=== PATIENT | female | born 1985 | race Caucasian/White ===

== ENCOUNTER 2019-05-29 07:14 | Day surgery (SDC) | payer OTHER ==
[~2019-05-29] VITALS: Ht 160 cm; Wt 57.1 kg
[~2019-05-29 07:14] MED LIST: MULVITMINE PO; ONDA8ODT MM; PROM25 PO
--- NOTE | 2019-05-29 08:05 | NUR ---
05/29/19 0805 Vaughn Amanda IV ATTEMPTED IN RIGHT FOREARM AND WOULD NOT THREAD. IV STARTED IN RIGHT AC AND PATIENT TOLERATED WELL. HCG TO DILUTE 1.005 BLOOD SENT TO LAB.
== END 2019-05-29 09:31 | disposition home or self-care (01) ==
LOC: ORSCSDS 07:14
PROVIDERS: Internal Medicine Gastroenterology
PROC: 0DB68ZX Excision of Stomach, Via Natural or Artificial Opening Endoscopic, Diagnostic (ICD-10-PCS; principal; 2019-05-29 08:30)
PROC: 0DJD8ZZ Inspection of Lower Intestinal Tract, Via Natural or Artificial Opening Endoscopic (ICD-10-PCS; principal; 2019-05-29 08:30)
DX: K92.1 Melena (principal); Z80.0 Family history of malignant neoplasm of digestive organs; K30 Functional dyspepsia; K29.70 Gastritis, unspecified, without bleeding; K64.8 Other hemorrhoids
CPT/HCPCS: 84703; 88305; 88342; J0330; J0461; J2405; J2704; J7120

== ENCOUNTER → 2021-05-07 | Outpatient (CLI) | payer OTHER ==
[2021-05-07 17:10] LABS: Campylobacter Sp Not Detected (NOT DETECT)
[2021-05-07 17:11] LABS: Adenovirus F 40/41 Not Detected (NOT DETECT); Astrovirus Not Detected (NOT DETECT); Cryptosporidium Not Detected (NOT DETECT); Cyclospora Cayetanensis Not Detected (NOT DETECT); E. Coli O157 Not Detected (NOT DETECT); Entamoeba Histolytica Not Detected (NOT DETECT); Enteroaggregative E. coli-EAEC Not Detected (NOT DETECT); Enteropathogenic E. coli-EPEC Not Detected (NOT DETECT); Enterotoxigenic E. coli-ETEC Not Detected (NOT DETECT); Giardia Lamblia Not Detected (NOT DETECT); Norovirus GI/GII Not Detected (NOT DETECT); Plesiomonas Shigelloides Not Detected (NOT DETECT); Rotavirus A Not Detected (NOT DETECT); Salmonella Sp Not Detected (NOT DETECT); Sapovirus Not Detected (NOT DETECT); Shiga Toxin-prod E. coli-STEC Not Detected (NOT DETECT); Shigella/Enteroin E. coli-EIEC Not Detected (NOT DETECT); Vibrio Cholerae Not Detected (NOT DETECT); Vibrio Sp Not Detected (NOT DETECT); Yersinia Enterocolitica Not Detected (NOT DETECT)
== END | disposition home or self-care (01) ==
LOC: LAB 10:15 → LAB SHORT 10:15
PROVIDERS: Internal Medicine Gastroenterology
DX: K52.9 Noninfective gastroenteritis and colitis, unspecified (principal)
CPT/HCPCS: 0097U

== ENCOUNTER 2021-07-14 10:39 | Day surgery (SDC) | payer OTHER | END 2021-07-14 17:16 | disposition home or self-care (01) | LOC: ATC 10:39 | DX: E86.0 Dehydration (principal); Z88.5 Allergy status to narcotic agent | CPT/HCPCS: J3411; J3475; J7030; J7042 ==